=== PATIENT | male | born 1945 | race Caucasian/White ===

== ENCOUNTER 2021-07-11 09:21 | Inpatient (IN) | payer MEDICARE ==
[~2021-07-11] VITALS: Ht 177.8 cm; Wt 101.4 kg
[~2021-07-11 09:21] MED LIST: AMLO5 PO; Aspirin EC81 MG PO; CLON.1 PO; CLON.2TP TP; DIPATR PO; HYDACE10B PO; IBUP600 PO; LABE200 PO; LOSHYD100 PO; OXYACE5T PO; PROM25 PO; TRAZ100 PO; [UNRECOGNIZED DRUG - REMARK]; [UNRECOGNIZED DRUG - REMARK]; [UNRECOGNIZED DRUG - REMARK]
[2021-07-11 09:54] LABS: BASOPHILS ABSOLUTE AUTO 0.04 K/mm3 (0.00-0.23); BASOPHILS PERCENT AUTO 0 % (0-2); EOSINOPHILS ABSOLUTE AUTO 0.01 K/mm3 (0.00-0.68); EOSINOPHILS PERCENT AUTO 0 % (0-6); IMMATURE GRAN ABSOLUTE AUTO 0.04 K/mm3 (0.00-0.10); IMMATURE GRAN PERCENT AUTO 0 % (0-1); LYMPHOCYTES ABSOLUTE AUTO 1.65 K/mm3 (0.84-5.20); LYMPHOCYTES PERCENT AUTO 12 % (21-46); MONOCYTES ABSOLUTE AUTO 1.09 K/mm3 (0.16-1.47); MONOCYTES PERCENT AUTO 8 % (4-13); Mean Corpuscular Volume 91 fL (80-100); Mean Platelet Volume 9.3 fL (9.1-12.4); NEUTROPHILS ABSOLUTE AUTO 10.62 K/mm3 (1.96-9.15); NEUTROPHILS PERCENT AUTO 79 % (41-73); Platelet Count 231 K/mm3 (150-400); RDW Coefficient Variation 12.5 % (11.7-14.2); RDW Standard Deviation 41.3 fL (35.1-46.3); Red Blood Cell Count 5.81 M/mm3 (4.30-5.90); White Blood Cell Count 13.45 K/mm3 (4.00-11.30)
[2021-07-11 10:10] LABS: Albumin, Blood 4.1 g/dL (3.4-5.0); Albumin/Globulin Ratio 0.9 (0.8-1.8); Bilirubin, Total 0.9 mg/dL (0.1-1.0); Calcium, Blood 10.3 mg/dL (8.5-10.1); Creatinine, Blood 1.94 mg/dL (0.60-1.20); Globulin, Blood 4.5 g/dL (2.2-4.0); Potassium, Blood 4.6 mmol/L (3.5-5.5); Total Protein, Blood 8.6 g/dL (6.4-8.2)
[2021-07-11 10:40] LABS: Influenza A, PCR NEGATIVE (NEGATIVE); Influenza B, PCR NEGATIVE (NEGATIVE); Resp Syncytial Virus, PCR NEGATIVE (NEGATIVE); SARS-Cov-2 (COVID-19) PCR, MMC NEGATIVE (NEGATIVE)
[2021-07-11 11:07] LABS: Thyroid Stimulating Hormone 6.08 uIU/mL (0.360-4.800)
[2021-07-11 11:11] LABS: Troponin I 1.45 ng/mL (0.000-0.040)
[2021-07-11 12:28] LABS: Source, Urine Voided
[2021-07-11 12:33] LABS: Appearance, Urine Clear (Clear); Bilirubin, Urine Neg (Neg); Blood, Urine 5+ (Neg); Color, Urine Yellow (P-Yellow); Glucose Qualitative, Urine Neg (Neg); Ketones, Urine 2+ (Neg); Leukocyte Esterase, Urine 1+ (Neg); Nitrite, Urine Neg (Neg); Protein, Urine 4+ (Neg); Urobilinogen, Urine NORM (Normal)
[2021-07-11 12:40] LABS: Amorphous Light (0-Heavy); Bacteria Few /hpf; Mucus Light (0-Heavy); Squamous Epithelial Cells Few /hpf (Few)
[2021-07-11 13:04] LABS: U Amphetamine Screen Not Detected; U Barbituate Screen Not Detected; U Benzodiazapine Screen Not Detected; U Buprenorphine Screen Not Detected; U Cannabinoids Screen Not Detected; U Cocaine Screen Not Detected; U Methadone Screen Not Detected; U Methamphetamine Screen Not Detected; U Opiates Screen DETECTED; U Oxycodone Screen Not Detected; U Phencyclidine Screen Not Detected; U Propoxyphene Screen Not Detected
--- NOTE | 2021-07-11 18:35 | NUR ---
PT ARRIVED TO THE MEDICAL FLOOR FROM THE ER VIA GURNY. PT WAS ABLE TO TRANSFER TO THE BED 1 ASSIST. PT IS VERY CONFUSED AT THIS TIME. UNABLE TO COMPLETE MED REC AND HISTORY CALL LIGHT IN REACH. BED ALARM ON
[2021-07-11 18:47] LABS: Anti-Xa UFH, PHA Monitoring <0.10 IU/mL; International Normalized Ratio 1.08; Prothrombin Time Results 11.3 Sec (9.7-11.5)
[2021-07-12 04:33] LABS: International Normalized Ratio 1.1; Prothrombin Time Results 11.5 Sec (9.7-11.5)
[2021-07-12 04:42] LABS: Albumin, Blood 3.2 g/dL (3.4-5.0); Albumin/Globulin Ratio 0.8 (0.8-1.8); BASOPHILS ABSOLUTE AUTO 0.01 K/mm3 (0.00-0.23); BASOPHILS PERCENT AUTO 0 % (0-2); Bilirubin, Total 0.6 mg/dL (0.1-1.0); Bun/Creatinine Ratio 18.1 (12.0-20.0); Calcium, Blood 8.9 mg/dL (8.5-10.1); Creatinine, Blood 2.16 mg/dL (0.60-1.20); EOSINOPHILS PERCENT AUTO 0 % (0-6); Globulin, Blood 3.9 g/dL (2.2-4.0); Hematocrit 47.1 % (37.0-53.0); Hemoglobin 16.1 g/dL (13.5-17.5); IMMATURE GRAN ABSOLUTE AUTO 0.04 K/mm3 (0.00-0.10); IMMATURE GRAN PERCENT AUTO 0 % (0-1); LYMPHOCYTES ABSOLUTE AUTO 1.31 K/mm3 (0.84-5.20); LYMPHOCYTES PERCENT AUTO 10 % (21-46); MONOCYTES ABSOLUTE AUTO 1.05 K/mm3 (0.16-1.47); MONOCYTES PERCENT AUTO 8 % (4-13); Magnesium, Blood 2.1 mg/dL (1.6-2.4); Mean Corpuscular HGB 31.9 pg (26.0-34.0); Mean Corpuscular HGB Conc 34.2 g/dL (31.5-36.5); Mean Corpuscular Volume 93 fL (80-100); Mean Platelet Volume 9.3 fL (9.1-12.4); NEUTROPHILS ABSOLUTE AUTO 10.24 K/mm3 (1.96-9.15); NEUTROPHILS PERCENT AUTO 81 % (41-73); Platelet Count 167 K/mm3 (150-400); Potassium, Blood 4.5 mmol/L (3.5-5.5); RDW Coefficient Variation 12.6 % (11.7-14.2); RDW Standard Deviation 43.1 fL (35.1-46.3); Red Blood Cell Count 5.05 M/mm3 (4.30-5.90); Total Protein, Blood 7.1 g/dL (6.4-8.2); White Blood Cell Count 12.65 K/mm3 (4.00-11.30)
--- NOTE | 2021-07-12 05:09 | NUR ---
PT IS A/O X SELF. VERY FORGETFUL AND IMPULSIVE DURING THE NOC SHIFT. SOFT WR RESTRAINTS ORDERED, SHIFT Q2 DOCUMENTATION DONE. HEPARIN GTT IN RT AC (NEW LINE). NOT OOB THIS SHIFT. ATTENDS IN PLACE. BED IN LOWEST POSITION AND ALARM IS SET.
[2021-07-12] MEDS ORDERED: ALBU90OI INH (07:45)
[2021-07-12] MEDS ORDERED: ATOR20 PO (07:46)
[2021-07-12] MEDS ORDERED: ATEN100 PO (07:46)
[2021-07-12] MEDS ORDERED: VITAMIN D5000 UNIT PO (07:46)
[2021-07-12] MEDS ORDERED: IMIPRAMINE HCL50 M1 PO (07:48)
[2021-07-12] MEDS ORDERED: IPRAT-ALBUT 0.5-3 ML INH (07:50)
[2021-07-12] MEDS ORDERED: LOSA25 PO (07:50)
[2021-07-12] MEDS ORDERED: NARCAN4 M1 (07:51)
--- NOTE | 2021-07-12 18:36 | NUR ---
PT IS A/O X2 TO SELF AND PLACE. THE PT REMAINS DISOIRINTED AND UNSTEADY ON HIS FEET SOMEWHAT. THE PTS WRIST RESTRAINTS WERE REMOVED THIS EVENING. THE PT SEEMS MORE ALERT AND LESS IMPULSIVE NOT PULLING OFF THE TELE OR TRYING TO REMOVE THE IV. THE PT APPEARS TO BE BREATHING EASILY ON RA AT THIS TIME. PT HAS SLEPT OFF AND ON T/O THE DAY. CALL LIGHT IN REACH, BED ALARM ON WILL CONTINUE TO MONITOR AND ASSESS FOR CHANGES
[2021-07-13 00:52] LABS: Bun/Creatinine Ratio 19.4 (12.0-20.0); Calcium, Blood 9.1 mg/dL (8.5-10.1); Creatinine, Blood 2.47 mg/dL (0.60-1.20); Potassium, Blood 4.7 mmol/L (3.5-5.5); Troponin I 0.386 ng/mL (0.000-0.040)
--- NOTE | 2021-07-13 04:43 | NUR ---
SHIFT SUMMARY: PT IS A/OX3. OUT OF RESTRAINTS MOST OF DAY SHIFT/ALL OF NOC. STILL ALTERED, NOT USING CALL LIGHT. PLEASANT BUT IMPULSIVE AND FIGITY TELE: SR/86 VIA TELE MONITOR. HEPARIN GTT IN THERAPEUTIC RANGE. BED IN LOWEST POSITION AND ALARM IS SET.
[2021-07-13] MEDS ORDERED: ENTRESTO 24 MG1 EAC2 (12:34)
[2021-07-13] MEDS ORDERED: CARV6.25 PO (12:37)
--- NOTE | 2021-07-13 15:29 | NUR ---
DISCHARGE PATIENT TRANSPORTED VIA WHEELCHAIR TO PRIVATE VEHICLE. DISCHARGE INSTRUCTIONS EXPLAINED TO PATIENT AND . BOTH STATED UNDERSTANDING. PACKET SENT WITH PATIENT. IV REMOVED WITHOUT DIFFICULTY. TELE REMOVED WITHOUT DIFFICULTY. BELONGINGS SENT WITH PATIENT. MEDICATIONS FAXED TO PREFERRED PHARMACY. FOLLOW UP APPOINTMENT WITH PCP SCHEDULED.
== END 2021-07-13 15:12 | disposition home health service (06) | DRG 871 ==
LOC: ER 09:21 → ERHOLD 14:53 → MEDS 14:53
PROVIDERS: Emergency Medicine; Internal Medicine Cardiovascular Disease; Nurse Practitioner Acute Care; Pharmacist; ADMIT Internal Medicine
DX: A41.9 Sepsis, unspecified organism (principal); J18.9 Pneumonia, unspecified organism; G92.8 Other toxic encephalopathy; I24.8 Other forms of acute ischemic heart disease; I13.0 Hypertensive heart and chronic kidney disease with heart failure and stage 1 through stage 4 chronic kidney disease, or unspecified chronic kidney disease; I50.22 Chronic systolic (congestive) heart failure; J44.0 Chronic obstructive pulmonary disease with (acute) lower respiratory infection; Z66 Do not resuscitate; T40.605A Adverse effect of unspecified narcotics, initial encounter; N18.30 Chronic kidney disease, stage 3 unspecified; E78.5 Hyperlipidemia, unspecified; E66.01 Morbid (severe) obesity due to excess calories; Z68.33 Body mass index [BMI] 33.0-33.9, adult; Z78.1 Physical restraint status; I71.9 Aortic aneurysm of unspecified site, without rupture; Z20.822 Contact with and (suspected) exposure to COVID-19; Z98.890 Other specified postprocedural states; Z87.891 Personal history of nicotine dependence; G89.29 Other chronic pain; Z91.14 Patient's other noncompliance with medication regimen; Z88.8 Allergy status to other drugs, medicaments and biological substances; Z98.1 Arthrodesis status; Z79.82 Long term (current) use of aspirin; Z79.899 Other long term (current) drug therapy
CPT/HCPCS: 0241U; 36415; 70450; 71045; 71250; 74177; 76775; 80048; 80053; 81001; 82550; 83605; 83735; 83880; 84145; 84439; 84443; 84484; 85025; 85520; 85610; 85651; 85730; 86140; 87040; 87086; 93005; 93010; 93306; 96365; 96375; 99285-25; A9270; J0696; J1644; J1940; J2405; J2765; J7030; Q9967

== ENCOUNTER 2022-03-18 01:02 | Inpatient (IN) | payer MEDICARE ==
[~2022-03-18] VITALS: Ht 175.3 cm; Wt 110.3 kg
[~2022-03-18 01:02] MED LIST changes: +ALBU90OI INH; +ATEN100 PO; +ATOR20 PO; +CARV6.25 PO; +ENTRESTO 24 MG1 EAC2; +IMIPRAMINE HCL50 M1 PO; +IPRAT-ALBUT 0.5-3 ML INH; +LOSA25 PO; +NARCAN4 M1; +VITAMIN D5000 UNIT PO
[2022-03-18 01:58] LABS: BASOPHILS ABSOLUTE AUTO 0.03 K/mm3 (0.00-0.23); BASOPHILS PERCENT AUTO 1 % (0-2); EOSINOPHILS ABSOLUTE AUTO 0.14 K/mm3 (0.00-0.68); EOSINOPHILS PERCENT AUTO 2 % (0-6); Hematocrit 43.7 % (37.0-53.0); Hemoglobin 15.2 g/dL (13.5-17.5); IMMATURE GRAN ABSOLUTE AUTO 0.02 K/mm3 (0.00-0.10); IMMATURE GRAN PERCENT AUTO 0 % (0-1); LYMPHOCYTES ABSOLUTE AUTO 1.35 K/mm3 (0.84-5.20); LYMPHOCYTES PERCENT AUTO 22 % (21-46); MONOCYTES ABSOLUTE AUTO 0.51 K/mm3 (0.16-1.47); MONOCYTES PERCENT AUTO 8 % (4-13); Mean Corpuscular HGB 31.8 pg (26.0-34.0); Mean Corpuscular HGB Conc 34.8 g/dL (31.5-36.5); Mean Corpuscular Volume 91 fL (80-100); Mean Platelet Volume 9.2 fL (9.1-12.4); NEUTROPHILS ABSOLUTE AUTO 4.22 K/mm3 (1.96-9.15); NEUTROPHILS PERCENT AUTO 67 % (41-73); Platelet Count 171 K/mm3 (150-400); RDW Coefficient Variation 12.5 % (11.7-14.2); RDW Standard Deviation 41.9 fL (35.1-46.3); Red Blood Cell Count 4.78 M/mm3 (4.30-5.90); White Blood Cell Count 6.27 K/mm3 (4.00-11.30)
[2022-03-18 02:05] LABS: Albumin, Blood 4.2 g/dL (3.4-5.0); Albumin/Globulin Ratio 1.1 (0.8-1.8); Bilirubin, Total 0.5 mg/dL (0.1-1.0); Bun/Creatinine Ratio 13.3 (12.0-20.0); Calcium, Blood 9.6 mg/dL (8.5-10.1); Creatinine, Blood 2.26 mg/dL (0.60-1.20); Globulin, Blood 3.8 g/dL (2.2-4.0); Potassium, Blood 4.4 mmol/L (3.5-5.5)
[2022-03-18 05:39] LABS: Anti-Xa UFH, PHA Monitoring <0.10 IU/mL; International Normalized Ratio 1.05
[2022-03-18 07:16] LABS: CPK Creatine Kinase 110 U/L (39-308)
--- NOTE | 2022-03-18 10:43 | NUR ---
0910 PT TX FROM 346 TO PCU 9- PLAN TO OBTAIN CT OF AORTA AND EVAL OF POSSIBLE DISECTION. PT HAS BEEN COMPLAINING OF EPIGASTRIC PAIN 02/13. MEDICATED WITH FENTANYL WITH MIN RELEIF. IVF INFUSING - BED TO BED TX IN ICU- REPORT GIVEN AT BEDSIDE. PT HAS BEEN NPO SINCE ADMIT INTO HOSP EXCEPT A FEW SIPS OF WATER THIS AM TO SWALLOW COREG.
--- NOTE | 2022-03-18 13:03 | NUR ---
TRANSFER SUMMARY: PATIENT WAS RECIEVED BY [facility] NURSE THIS AM ORUND 0900. PATIENT HAS BEEN NAUSEATED WITH HEADACHE, WITH ELEVATED BLOOD PRESSURES, A POWERGLIDE WAS ESTABLISHED AND IV ACELACYSTEINE WAS RAN FOR CTA OF AORTA. 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 FLIGHT CREW WAS INFORMED AND GIVEN REPORT WITH NO QUESTIONS COMMENTS OR CONCERNS FURTHER. PATIENT WAS UNDERSTANDING AND ALERT OF SITUATION. PATIENT HAS BEEN KEPT NPO. CALL TO TRANSFER CENTER, REPORT GIVEN TO JACK LAWTON 12K DR. REDDY. RM 26, PATIENT. PATIENT ON RA DENYING CHEST PAIN PRESSURE OR SOB. DOES HAVE EPIGASTRIC PAIN NOT RELIEVED WITH GI COCKTAIL FENTANYL OR DECREASE IN BLOOD PRESSURE. PAIN DOES NOT GO ENTIRELY THROUGH BACK. 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
== END 2022-03-18 12:59 | disposition short-term general hospital (02) | DRG 300 ==
LOC: ER 01:02 → MEDS 01:03 → PCU 06:17 → MEDS 06:24 → PCU 09:14
PROVIDERS: Emergency Medicine; ADMIT Internal Medicine
DX: I71.01 Dissection of thoracic aorta (principal); I13.0 Hypertensive heart and chronic kidney disease with heart failure and stage 1 through stage 4 chronic kidney disease, or unspecified chronic kidney disease; N18.4 Chronic kidney disease, stage 4 (severe); I50.22 Chronic systolic (congestive) heart failure; E66.01 Morbid (severe) obesity due to excess calories; E78.5 Hyperlipidemia, unspecified; Z98.890 Other specified postprocedural states; J44.9 Chronic obstructive pulmonary disease, unspecified; Z87.891 Personal history of nicotine dependence; Z68.34 Body mass index [BMI] 34.0-34.9, adult
CPT/HCPCS: 36415; 71045; 71275; 74175; 74176; 76705; 80053; 82550; 83690; 83880; 84484; 85025; 85520; 85610; 93005; 93010; 96372; 96374-59; 96375; 96375-59; 96376; 96376-59; 99285-25; A9270; C1751; G0378; J0132; J1170; J1644; J1940; J2405; J3010; J7030; J7060; Q9967